=== PATIENT | female | born 1980 | race Caucasian/White ===

== ENCOUNTER 2023-05-05 07:21 | Outpatient (RCR) | payer OTHER, MEDICAID, SELFPAY ==
--- NOTE | 2023-05-05 16:50 | PT.OPPOC ---
Physical, Occupational & Speech Therapy At [facility] Current Diagnoses Stress incontinence (female) (male) (05/05/23) Pelvic and perineal pain (05/05/23) Visit Care Team Role Provider Type Karma Angel PA-C Attending Provider Non-Staff Family Provider Primary Care Provider Referring Provider Specialty: Medical Address: [facility] Regina Alexander, [address] [address], [place], [address] Email: Plan Of Care PT-OP-T Assessment and Plan Start: 04/10/23 17:44 Freq: Status: Active Protocol: Document 05/05/23 07:23 LRN (Rec: 05/05/23 08:18 LRN [id number]) Physical Therapy Assessment Rehab Potential Rehabilitation Potential Good Evaluation Complexity Number of Personal Factors/Comorbidities 1-2 Number of Body Systems Impaired 4 or More Clinical Presentation at Evaluation Evolving Impairments Impairments Activity Tolerance,Pain, Posture,ROM,Soft Tissue Mobility,Strength,Transfers Goals Three Impairment PF weakness resulting in stress urinary incontinence Short Term Goal (STG) Pt will be able to reduce or eliminate urinary leakage in standing (while washing dishes ). STG Duration 6 wks-06/16/23 Group Home Goal (LTG) Improve PF strength with pt able to lightly run or quickly walk (with her 1-1/2 yo grandson) with minimal to no urinary leakage. LTG Duration 12 wks-07/28/23 Two Impairment Lower abdominal pressure discomfort Short Term Goal (STG) Pt educated in core abdominal pressure management with transfers and daily body mechanics for ADLs with pt able to have an urge to urinate instead of just pressure. STG Duration 4 wks-06/02/23 Group Home Goal (LTG) Increase PF strength and manage core abdominal pressure with relief of her constant pelvic pressure during the day . LTG Duration 12 wks-07/28/23 One Impairment Pt lacks an independent self care HEP. Short Term Goal (STG) Pt will be educated in vulvar/ genital care. STG Duration 2 wks-05/19/23 Group Home Goal (LTG) Pt will be independent in a self care HEP for PF, core, & hip AD strengthening and hip rot and R SB mobility exercises. LTG Duration 12 wks-07/28/23 Assessment Summary Assessment Pt is a 42 yo female who presents with stress urinary incontinence, cystocele and urethrocele due to PF/core/hip weakness, poor core pressure management, postural changes, decreased hip mobility and lack of proper self care with exercises and vulvar/genital care. The pt will benefit from skilled physical therapy to work towards achieving the above stated goals. Physical Therapy Plan Frequency and Duration Frequency of Treatment 1x/Week Duration of treatment (weeks) 12 Plan of Care Start Date 05/05/23 Plan of Care End Date 07/28/23 Therapeutic Interventions Therapeutic Interventions Home Exercise Program,Manual Therapy,Neuromuscular Re- education,Self-Care/Home Management,Soft Tissue Mobilization,Therapeutic Activities,Therapeutic Exercises Modalities Biofeedback,Electric Stimulation Next Visit Focus/Plan Next Note Type Treatment Note Next Visit Plan Next: Review bladder diary and address constipation, pt education in bladder retraining with urge deference technique, reduction of intra -abdominal pressure, and Vemg Biofeedback for strengthening and proper Kegel awareness training. Training for Kegel without use of substitute muscles, and proper breathing with transfers and body mechanics, proper deep breathing. On wedge: PF strengthening for quick and long holds. Core stab & rot, Posture training, hip rot (IR/ ER) and L SB stretches. PLAN: POC: Pt education, Manual therapy. ? Biofeedback with vaginal sensor. Therapeutic Exercises, Therapeutic Activities, Neuromuscular Reeducation. OR Review bladder diary, pt education in bladder retraining with urge deference technique, proper Kegel without use of substitute muscles, reduction of intra- abdominal pressure, proper deep breathing, and proper breathing with transfers and body mechanics. PF/core/hip strengthening, improve hip mobility, improve abdominal soft tissue (bladder/urachus) mobility, Educate/discuss stool types, foods, water intake, Bowel massage, proper sit to stand, and moving in bed using breathwork and core/ PF stabilization for proper abdominal pressure system and vulvar/genital care and body mechanics . Plan of Care Dates Plan of Care Start Date 05/05/23 Plan of Care End Date 07/28/23 Electronically Signed by: Mihaela Bennett, PT 05/06/23 7127 If you are in agreement with this Plan of Care, please return a signed and dated copy. I have reviewed this Plan of Care and certify that the skilled therapy services above are required to meet the patient?s needs. Physician Signature Date Printed Name and Credentials Clinical Instructor Signature Printed Name and Credentials
--- NOTE | 2023-05-05 16:50 | PT.OIE ---
Current Diagnoses Stress incontinence (female) (male) (05/05/23) Pelvic and perineal pain (05/05/23) Visit Care Team Role Provider Type Karma Angel PA-C Attending Provider Non-Staff Family Provider Primary Care Provider Referring Provider Specialty: Medical Address: [address], [address], [place], [address] Email: Physical Therapy Initial Evaluation PT-OP-A Visit Information Start: 04/10/23 17:44 Freq: Status: Active Protocol: Document 05/05/23 07:23 LRN (Rec: 05/05/23 08:18 LRN [id number]) Out-Patient Physical Therapy Visit Information Visit Information Visit Type Initial Evaluation Visit Start Time 07:30 Visit Stop Time 08:18 Visit Number 1 Evaluation Information Evaluation Date 05/05/23 Precautions Precautions Arthritis, Fibromyalgia, Back pain, hyste PT-OP-B Current Condition Start: 04/10/23 17:44 Freq: Status: Active Protocol: Document 05/05/23 07:23 LRN (Rec: 05/05/23 08:18 LRN [id number]) Current Condition History of Current Condition Onset Date 2 yrs Current Complaints Standing and urine leaking, and with jumping sneezing, coughing, laughing.. History of Current Condition Pt has had onset of urinary leakage that has worsened in the past 2 years and is now having urinary leakage without warning while standing and washing dishes, causing wetting of under clonthing and pants. She reports starting leaking after the of her now 17 yo son. The pt has 2 children ages 22 and 17 (son). She would like to run with her 1-1/2 yo grandson without leaking. She also c/o having pelvic pressure all the time unless she dehydrates herself. Pt works as a dirrect support professional Prior Treatments and Tests None Developmental History Developmental History 2G, 2P of vaginal births w/o complications. Treatment Goals Patient/Caregiver Goals Pt goals: 1) Run with her 1-1 /2 yo grandson, 2) Stand w/o leaking, 3) have an urge to urinate instead of just pressure, 4) relief of constant pelvic pressure, 5) Self care education and HEP. Personal Factors Other Personal Factors That May Effect Started a new job in Dec 2022, Therapy/Recovery still under probation period, chronicity of urinary leakage condition. PT-OP-C Subjective Start: 04/10/23 17:44 Freq: Status: Active Protocol: Document 05/05/23 07:23 LRN (Rec: 05/05/23 08:18 LRN [id number]) Patient Questionnaires Pelvic Pain and Urgency/Frequency Patient Symptom Scale Pelvic Pain Score 10 PT-OP-I Pelvic Floor Start: 04/10/23 17:44 Freq: Status: Active Protocol: Document 05/05/23 07:23 LRN (Rec: 05/05/23 08:18 LRN [id number]) Pelvic Floor Assessment Urine Urinary Symptoms Urge Sensation,Dribbling After Urination,Falling Out Feeling /Heavy Other Urinary Symptoms Leaks w/o urge. Leakage Size Large Leakage Cause Cough,Lifting,Sneeze Leaks Per Day at least daily Nocturia 1 Pads Used In 24 Hours 0 Bowel Bowel Symptoms Constipation Other Bowel Symptoms Constipation her entire life. Was told by GI specialist that the sphincter and doesn't contract like it is supposed. Bowel Movement Frequency 2x/week. If hasn't gone in 2 wks, she goes vegan. [place] Stool Chart Comments Types 1-4 Prolapse Cystocele Grade 2 Urethrocele Grade 2 Contraction Ability Manual Muscle Testing Left 3 Manual Muscle Testing Right 2 Muscle Endurance (Seconds) 3 Number of Quick Contractions In 10 6 Seconds Comments Pelvic Floor Comments Quick contractions: 4 reps prior to onset of reduction of strength of contraction. PT-OP-J Posture/Palpation/Skin Start: 04/10/23 17:44 Freq: Status: Active Protocol: Document 05/05/23 07:23 LRN (Rec: 05/05/23 08:18 LRN [id number]) Posture Evaluation Position Standing Head/C-Spine Posture Forward Head L-Spine Posture Increased Lordosis,Shifted Right Pelvis Posture Anteriorly Tilted,(R) Iliac Crest Superior,(R) PSIS Posterior Palpation Assessment Location Abdomen Palpation Location Abdomen along linea alba Palpation Details Umbilicus 2 above: 1.5 finger widths Umbilicus 1 above: 1.5 finger widths Umbilicus Umbilicus: 1 below: 1.5 finger widths Umbilicus: 2 below: 1.5 finger widths PT-OP-K Range of Motion Start: 04/10/23 17:44 Freq: Status: Active Protocol: Document 05/05/23 07:23 LRN (Rec: 05/05/23 08:18 LRN [id number]) Lumbar Spine Range of Motion Lumbar Spine Active Degrees Testing Position Standing Flexion 90 Extension 15 Rotation Left 45 Rotation Right 40 Lateral Flexion Left 25 Lateral Flexion Right 15 ROM Limitations Soft Tissue Tightness Hip Goniometric Range of Motion Hip Right Passive Testing Position Supine Internal Rotation 30 External Rotation 45 Left Passive Testing Position Supine Internal Rotation 35 External Rotation 45 PT-OP-M Strength Start: 04/10/23 17:44 Freq: Status: Active Protocol: Document 05/05/23 07:23 LRN (Rec: 05/05/23 08:18 LRN [id number]) Trunk Strength Trunk Manual Muscle Testing Core Stabilization Pt is not able to maintain core stability with MMT of LE' s. Most notable is rotational instability. Hip Strength Hip Manual Muscle Testing Right Comments Strength is generally 5/5. Left Adduction 4+ Good+ Comments Strength is 5/5 except as indicated above. PT-OP-Q Treatments Start: 04/10/23 17:44 Freq: Status: Active Protocol: Document 05/05/23 07:23 LRN (Rec: 05/05/23 08:18 LRN [id number]) Self-Care/Home Management Treatment Education Other Education Discussed results of evaluation, goals, and plan of care (POC) with pt, discussed attendance/cx/dns policy; pt agreeable to goals, attendance policy and POC. Discussed and educated pt in specifics for completion of Bladder Diary and I/S pt in tracking food & fluids for 1 week. Discussed use of 2 different diaries for tracking of bladder for next 7 days. Activities Self-Care/Home Management Activities Issued & reviewed HEP: Kegel ex's and discussed exercise of Quick Flicks, Long Holds and Aggravators. PT-OP-T Assessment and Plan Start: 04/10/23 17:44 Freq: Status: Active Protocol: Document 05/05/23 07:23 LRN (Rec: 05/05/23 08:18 LRN [id number]) Physical Therapy Assessment Rehab Potential Rehabilitation Potential Good Evaluation Complexity Number of Personal Factors/Comorbidities 1-2 Number of Body Systems Impaired 4 or More Clinical Presentation at Evaluation Evolving Impairments Impairments Activity Tolerance,Pain, Posture,ROM,Soft Tissue Mobility,Strength,Transfers Goals Three Impairment PF weakness resulting in stress urinary incontinence Short Term Goal (STG) Pt will be able to reduce or eliminate urinary leakage in standing (while washing dishes ). STG Duration 6 wks-06/16/23 Residential Goal (LTG) Improve PF strength with pt able to lightly run or quickly walk (with her 1-1/2 yo grandson) with minimal to no urinary leakage. LTG Duration 12 wks-07/28/23 Two Impairment Lower abdominal pressure discomfort Short Term Goal (STG) Pt educated in core abdominal pressure management with transfers and daily body mechanics for ADLs with pt able to have an urge to urinate instead of just pressure. STG Duration 4 wks-06/02/23 Residential Goal (LTG) Increase PF strength and manage core abdominal pressure with relief of her constant pelvic pressure during the day . LTG Duration 12 wks-07/28/23 One Impairment Pt lacks an independent self care HEP. Short Term Goal (STG) Pt will be educated in vulvar/ genital care. STG Duration 2 wks-05/19/23 Combination Welder Apprentice Goal (LTG) Pt will be independent in a self care HEP for PF, core, & hip AD strengthening and hip rot and R SB mobility exercises. LTG Duration 12 wks-07/28/23 Assessment Summary Assessment Pt is a 42 yo female who presents with stress urinary incontinence, cystocele and urethrocele due to PF/core/hip weakness, poor core pressure management, postural changes, decreased hip mobility and lack of proper self care with exercises and vulvar/genital care. The pt will benefit from skilled physical therapy to work towards achieving the above stated goals. Physical Therapy Plan Frequency and Duration Frequency of Treatment 1x/Week Duration of treatment (weeks) 12 Plan of Care Start Date 05/05/23 Plan of Care End Date 07/28/23 Therapeutic Interventions Therapeutic Interventions Home Exercise Program,Manual Therapy,Neuromuscular Re- education,Self-Care/Home Management,Soft Tissue Mobilization,Therapeutic Activities,Therapeutic Exercises Modalities Biofeedback,Electric Stimulation Next Visit Focus/Plan Next Note Type Treatment Note Next Visit Plan Next: Review bladder diary and address constipation, pt education in bladder retraining with urge deference technique, reduction of intra -abdominal pressure, and Vemg Biofeedback for strengthening and proper Kegel awareness training. Training for Kegel without use of substitute muscles, and proper breathing with transfers and body mechanics, proper deep breathing. On wedge: PF strengthening for quick and long holds. Core stab & rot, Posture training, hip rot (IR/ ER) and L SB stretches. PLAN: POC: Pt education, Manual therapy. ? Biofeedback with vaginal sensor. Therapeutic Exercises, Therapeutic Activities, Neuromuscular Reeducation. OR Review bladder diary, pt education in bladder retraining with urge deference technique, proper Kegel without use of substitute muscles, reduction of intra- abdominal pressure, proper deep breathing, and proper breathing with transfers and body mechanics. PF/core/hip strengthening, improve hip mobility, improve abdominal soft tissue (bladder/urachus) mobility, Educate/discuss stool types, foods, water intake, Bowel massage, proper sit to stand, and moving in bed using breathwork and core/ PF stabilization for proper abdominal pressure system and vulvar/genital care and body mechanics .
--- NOTE | 2023-06-03 08:45 | PT-OP ANOTE ---
Msg left by phone, notifying pt of 2 cancelled appts in a row and reminding pt of attendance compliance contract. Requested pt return call if she would like to continue with therapy, next appt 06/20/23. Pt notified that if she does not call back by the end of the week notifying of decision to continue therapy she will be discharged per compliance contract.
--- NOTE | 2023-06-19 08:30 | PT-OP ANOTE ---
Msg left notifying pt that today's appt cancel was 3rd in a row of cancels and per cancel policy she will be discharged from therapy unless she calls by end of this week to discuss and request continuation of therapy. PT phone number given.
--- NOTE | 2023-06-24 16:43 | PT.OPDS ---
Current Diagnoses Stress incontinence (female) (male) (05/05/23) Pelvic and perineal pain (05/05/23) Visit Care Team Role Provider Type Karma Angel PA-C Attending Provider Non-Staff Family Provider Primary Care Provider Referring Provider Specialty: Medical Address: [facility] [address], [address], [place], [address] Email: Visit Number Visit Number 1 Discharge Summary PT-OP-B Current Condition Start: 04/10/23 17:44 Freq: Status: Active Protocol: Document 05/05/23 07:23 LRN (Rec: 05/05/23 08:18 LRN [id number]) Current Condition History of Current Condition Onset Date 2 yrs Current Complaints Standing and urine leaking, and with jumping sneezing, coughing, laughing.. History of Current Condition Pt has had onset of urinary leakage that has worsened in the past 2 years and is now having urinary leakage without warning while standing and washing dishes, causing wetting of under clonthing and pants. She reports starting leaking after the of her now 17 yo son. The pt has 2 children ages 22 and 17 (son). She would like to run with her 1-1/2 yo grandson without leaking. She also c/o having pelvic pressure all the time unless she dehydrates herself. Pt works as a dirrect support professional Prior Treatments and Tests None Developmental History Developmental History 2G, 2P of vaginal births w/o complications. Treatment Goals Patient/Caregiver Goals Pt goals: 1) Run with her 1-1 /2 yo grandson, 2) Stand w/o leaking, 3) have an urge to urinate instead of just pressure, 4) relief of constant pelvic pressure, 5) Self care education and HEP. Personal Factors Other Personal Factors That May Effect Started a new job in Dec 2022, Therapy/Recovery still under probation period, chronicity of urinary leakage condition. PT-OP-C Subjective Start: 04/10/23 17:44 Freq: Status: Active Protocol: Document 05/05/23 07:23 LRN (Rec: 05/05/23 08:18 LRN [id number]) Patient Questionnaires Pelvic Pain and Urgency/Frequency Patient Symptom Scale Pelvic Pain Score 10 PT-OP-I Pelvic Floor Start: 04/10/23 17:44 Freq: Status: Active Protocol: Document 05/05/23 07:23 LRN (Rec: 05/05/23 08:18 LRN [id number]) Pelvic Floor Assessment Urine Urinary Symptoms Urge Sensation,Dribbling After Urination,Falling Out Feeling /Heavy Other Urinary Symptoms Leaks w/o urge. Leakage Size Large Leakage Cause Cough,Lifting,Sneeze Leaks Per Day at least daily Nocturia 1 Pads Used In 24 Hours 0 Bowel Bowel Symptoms Constipation Other Bowel Symptoms Constipation her entire life. Was told by GI specialist that the sphincter and doesn't contract like it is supposed. Bowel Movement Frequency 2x/week. If hasn't gone in 2 wks, she goes vegan. [place] Stool Chart Comments Types 1-4 Prolapse Cystocele Grade 2 Urethrocele Grade 2 Contraction Ability Manual Muscle Testing Left 3 Manual Muscle Testing Right 2 Muscle Endurance (Seconds) 3 Number of Quick Contractions In 10 6 Seconds Comments Pelvic Floor Comments Quick contractions: 4 reps prior to onset of reduction of strength of contraction. PT-OP-J Posture/Palpation/Skin Start: 04/10/23 17:44 Freq: Status: Active Protocol: Document 05/05/23 07:23 LRN (Rec: 05/05/23 08:18 LRN [id number]) Posture Evaluation Position Standing Head/C-Spine Posture Forward Head L-Spine Posture Increased Lordosis,Shifted Right Pelvis Posture Anteriorly Tilted,(R) Iliac Crest Superior,(R) PSIS Posterior Palpation Assessment Location Abdomen Palpation Location Abdomen along linea alba Palpation Details Umbilicus 2 above: 1.5 finger widths Umbilicus 1 above: 1.5 finger widths Umbilicus Umbilicus: 1 below: 1.5 finger widths Umbilicus: 2 below: 1.5 finger widths PT-OP-K Range of Motion Start: 04/10/23 17:44 Freq: Status: Active Protocol: Document 05/05/23 07:23 LRN (Rec: 05/05/23 08:18 LRN [id number]) Lumbar Spine Range of Motion Lumbar Spine Active Degrees Testing Position Standing Flexion 90 Extension 15 Rotation Left 45 Rotation Right 40 Lateral Flexion Left 25 Lateral Flexion Right 15 ROM Limitations Soft Tissue Tightness Hip Goniometric Range of Motion Hip Right Passive Testing Position Supine Internal Rotation 30 External Rotation 45 Left Passive Testing Position Supine Internal Rotation 35 External Rotation 45 PT-OP-M Strength Start: 04/10/23 17:44 Freq: Status: Active Protocol: Document 05/05/23 07:23 LRN (Rec: 05/05/23 08:18 LRN [id number]) Trunk Strength Trunk Manual Muscle Testing Core Stabilization Pt is not able to maintain core stability with MMT of LE' s. Most notable is rotational instability. Hip Strength Hip Manual Muscle Testing Right Comments Strength is generally 5/5. Left Adduction 4+ Good+ Comments Strength is 5/5 except as indicated above. PT-OP-T Assessment and Plan Start: 04/10/23 17:44 Freq: Status: Active Protocol: Document 06/24/23 16:36 LRN (Rec: 06/24/23 16:42 LRN [id number]) Physical Therapy Assessment Goals Three Impairment PF weakness resulting in stress urinary incontinence Short Term Goal (STG) Pt will be able to reduce or eliminate urinary leakage in standing (while washing dishes ). STG Duration 6 wks-06/16/23 Encyclopedia Research Worker Goal (LTG) Improve PF strength with pt able to lightly run or quickly walk (with her 1-1/2 yo grandson) with minimal to no urinary leakage. LTG Duration 12 wks-07/28/23 Two Impairment Lower abdominal pressure discomfort Short Term Goal (STG) Pt educated in core abdominal pressure management with transfers and daily body mechanics for ADLs with pt able to have an urge to urinate instead of just pressure. STG Duration 4 wks-06/02/23 [facility] Goal (LTG) Increase PF strength and manage core abdominal pressure with relief of her constant pelvic pressure during the day . LTG Duration 12 wks-07/28/23 One Impairment Pt lacks an independent self care HEP. Short Term Goal (STG) Pt will be educated in vulvar/ genital care. STG Duration 2 wks-05/19/23 [facility] Goal (LTG) Pt will be independent in a self care HEP for PF, core, & hip AD strengthening and hip rot and R SB mobility exercises. LTG Duration 12 wks-07/28/23 Assessment Summary Assessment Pt is a 42 yo female who presented on 05/05/23 with stress urinary incontinence, cystocele and urethrocele due to PF/core/hip weakness, poor core pressure management, postural changes, decreased hip mobility and lack of proper self care with exercises and vulvar/genital care. She has not returned for any of her scheduled appointments after her initial evaluation, canceling 4 appointments in a row without explanation. The pt is being discharged from physcial therapy as she is non- compliant with our the cancelation policy and agreement. Goals were not met. Physical Therapy Plan Discharge Physical Therapy Discharge Reasons No Longer Attending PT Discharge Comments Thank you for your referral. The pt will need a new referral to return to PT.
== END 2023-06-25 09:39 ==
LOC: PHYS 07:21
PROVIDERS: Family Provider Physician Assistant; PCP Physician Assistant; Referring Provider Physician Assistant; Visit Provider Physician Assistant
DX: R10.2 Pelvic and perineal pain (principal); N39.3 Stress incontinence (female) (male)
CPT/HCPCS: 97162; 97535